=== PATIENT | male | born 1980 | race Two or more races ===

== ENCOUNTER 2020-01-01 06:00 | Day surgery (SDC) | payer OTHER | END 2020-01-01 14:15 | disposition home or self-care (01) | LOC: CIR.AMB 06:00 → ADM 09:30 → CIR.AMB 09:30 | DX: M13.141 Monoarthritis, not elsewhere classified, right hand (principal) ==

== ENCOUNTER 2022-10-11 04:52 | Outpatient (CLI) | payer OTHER | END 2022-10-11 23:00 | disposition home or self-care (01) | LOC: LAB 04:52 | PROVIDERS: ATTEND Obstetrics & Gynecology | DX: Z20.818 Contact with and (suspected) exposure to other bacterial communicable diseases (principal); Z20.828 Contact with and (suspected) exposure to other viral communicable diseases ==